=== PATIENT | male | born 1960 | race Caucasian/White ===

== ENCOUNTER 2018-04-18 08:16 | Day surgery (SDC) | payer BC ==
[2018-04-18] MEDS ORDERED: FENTAnyl 50 MCG/ML VIAL (12:52)
[2018-04-18] MEDS ORDERED: MIDAZOLAM 1 MG/ML 2 ML INJ (12:52)
[2018-04-18] MEDS: LIDOCAINE 1%/EPI 30 ML INJ (13:08)
[2018-04-18] MEDS: OXYMETAZOLINE 0.05% 15 ML NAS SPRAY NASAL (13:08)
[2018-04-18] MEDS ORDERED: ONDANSETRON 4 MG INJ (14:02)
[2018-04-18] MEDS ORDERED: NEOSTIGMINE 3 MG/3 ML SYRINGE (14:09)
[2018-04-18] MEDS ORDERED: LIDOCAINE 2% (SDV) 5 ML INJ (14:09)
[2018-04-18] MEDS ORDERED: ROCURONIUM 50 MG INJ (14:09)
[2018-04-18] MEDS ORDERED: PROPOFOL 20 ML (14:09)
[2018-04-18] MEDS ORDERED: GLYCOPYRROLATE 0.4 MG INJ (14:09)
[2018-04-18] MEDS ORDERED: hydrALAzine 20 MG INJ (14:19)
[2018-04-18] MEDS ORDERED: HYDROmorphONE 1 MG/5 ML IV SYRINGE IV ×2 (14:20→14:30)
[2018-04-18] MEDS ORDERED: LABETALOL HCL 20MG INJ IV (14:25)
[2018-04-18] MEDS ORDERED: MEPERIDINE 25 MG INJ IV (14:30)
[2018-04-18] MEDS: hydrALAzine 20 MG INJ IV ×2 (14:30→14:56)
[2018-04-18] MEDS ORDERED: FENTAnyl 50 MCG/ML VIAL IV (14:30)
[2018-04-18] MEDS ORDERED: ONDANSETRON 4 MG INJ IV (14:30)
[2018-04-18] MEDS ORDERED: DIPHENHYDRAMINE 50 MG INJ IV (14:30)
[2018-04-18] MEDS: HYDROmorphONE 1 MG/5 ML IV SYRINGE IV ×2 (14:31→14:57)
[2018-04-18] MEDS: OXYCODONE/ACETAMINOPHEN (5/325) TAB PO (16:07)
== END 2018-04-18 16:30 | disposition home or self-care (01) ==
LOC: SDS 08:16
DX: J34.2 Deviated nasal septum (principal); J34.3 Hypertrophy of nasal turbinates
CPT/HCPCS: 30140; 88300